=== PATIENT | male | born 1955 | race Caucasian/White ===

== ENCOUNTER 2020-10-28 16:48 | Emergency (ER) | payer MEDICAID, OTHER ==
[~2020-10-28] VITALS: Ht 177.8 cm; Wt 94.3 kg
[2020-10-28 16:55] VITALS: BP 142/76
[2020-10-28] MEDS ORDERED: OMEP40CA13 PO (17:19)
[2020-10-28] MEDS ORDERED: LIDOCAINE VISCOUS 2% UD 15 ML UDC ONE (17:21)
[2020-10-28] MEDS ORDERED: MAG HYDROX/AL HYDROX/SIMETH 30 ML UDC ONE (17:21)
[2020-10-28] MEDS ORDERED: LIDOCAINE VISCOUS 2% UD 15 ML UDC MM ONE (17:30)
[2020-10-28] MEDS ORDERED: MAG HYDROX/AL HYDROX/SIMETH 30 ML UDC PO ONE (17:30)
--- NOTE | 2020-10-28 18:30 | NUR ---
PT FEELING MUCH BETTER S/P MEDICATTION. WAS PROVIDED W/ MEAL. AMBULATORY W/ STEADY GAIT. DISCHARGE HOME IN STABLE CONDITION.
== END 2020-10-28 18:31 | disposition home or self-care (01) ==
LOC: ER 16:53
DX: K21.9 Gastro-esophageal reflux disease without esophagitis (principal); F10.10 Alcohol abuse, uncomplicated; F17.200 Nicotine dependence, unspecified, uncomplicated; Y90.9 Presence of alcohol in blood, level not specified